=== PATIENT | male | born 1985 | race Caucasian/White ===

== ENCOUNTER 2016-10-02 22:30 | Emergency (ER) | payer MEDICAID ==
--- NOTE | 2016-10-02 22:58 | EDPHY ---
H & P Stated Complaint: rectal pain Time Seen by Provider: 10/02/16 22:38 HPI/ROS: HPI The patient presents with 4 days of rectal pain which is described as an ache which has been constant, though is worse with sitting, coughing, sneezing. It is not associated with any constipation, bleeding, hard stools. He has not had any fevers or chills. He has no prior history of similar. He describes the pain as moderate. He denies any rectal trauma. REVIEW OF SYSTEMS Constitutional: No fever, no chills. Eyes: No discharge. ENT: No sore throat. Cardiovascular: No chest pain, no palpitations. Respiratory: No cough, no shortness of breath. Gastrointestinal: No abdominal pain, no vomiting. Genitourinary: No hematuria. Musculoskeletal: No back pain. Skin: No rashes. Neurological: No headache. 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 PHYSICAL General Appearance: Alert, no distress Eyes: Pupils equal and round no pallor or injection ENT, Mouth: Mucous membranes moist Respiratory: There are no retractions, lungs are clear to auscultation Cardiovascular: Regular rate and rhythm Gastrointestinal: Abdomen is soft and non-tender, no masses, bowel sounds normal Rectal: At 12 o'clock just proximal to the anal sphincter there is an area of fluctuance and tenderness Neurological: A&O, moves all extremities Skin: Warm and dry, no rashes Musculoskeletal: Neck is supple non tender Extremities: symmetrical, full range of motion Psychiatric: Patient is oriented X 3, there is no agitation Source: Patient Exam Limitations: No limitations - Personal History Current Tetanus/Diphtheria Vaccine: Yes Current Tetanus Diphtheria and Acellular Pertussis (TDAP): Yes Tetanus Vaccine Date: < 10 years - Medical/Surgical History Hx Asthma: No Hx Chronic Respiratory Disease: No Hx Diabetes: No Hx Cardiac Disease: No Hx Renal Disease: No Hx Cirrhosis: No Hx Alcoholism: No Hx HIV/AIDS: No Hx Splenectomy or Spleen Trauma: No Other PMH: denies - Social History Smoking Status: Current every day smoker Constitutional: Initial Vital Signs Temperature (C) 36.5 C 10/02/16 22:35 Heart Rate 89 10/02/16 22:35 Respiratory Rate 16 10/02/16 22:35 Blood Pressure 147/94 H 10/02/16 22:35 O2 Sat (%) 97 10/02/16 22:35 O2 Delivery Mode Room Air Allergies/Adverse Reactions: No Known Allergies Allergy (Unverified 06/06/15 13:26) Home Medications: Medication Instructions Recorded Hydrocortisone Acetate [Anucort-Hc] 25 mg RC BID #14 supp.rect 10/03/16 Medical Decision Making ED Course/Re-evaluation: Initial encounter- Plan for basic labs and CT scan of his pelvis to evaluate for perirectal versus perianal abscess. Reassessment- Basic labs revealed a leukocytosis. The patient has received Toradol and Tylenol for pain with improvement in his symptoms. CT scan was performed that demonstrated no signs of infection. Now that the patient is more comfortable, anoscopy can be performed. I visualized a hemorrhoid just above the anal verge at approximately 12 o'clock which is likely the cause of his symptoms. I have discussed this with him. I plan to start treatment with steroid rectal suppository. His stools seem fairly soft, thus I am not sure that he would benefit from a bowel regimen, though I have encouraged him to maintain a high-fiber diet with plenty of fluids. I have given him follow-up information for General surgery in the case that he is not improved with suppositories. Differential Diagnosis: This is a 31-year-old healthy male who presents with 4 days of rectal pain. On exam, he has a palpable rectal mass. Differential diagnosis includes perirectal abscess, perianal abscess, internal hemorrhoid, anal fissure. - Data Points Laboratory Results: Laboratory Results 10/02/16 23:10 10/02/16 10/02/16 23:13 23:10 WBC 11.29 10^3/uL H 10^3/uL (3.80-9.50) RBC 5.21 10^6/uL 10^6/uL (4.40-6.38) Hgb 16.3 g/dL g/dL (13.7-17.5) POC Hgb 15.6 gm/dL gm/dL (14.5-17.3) Hct 45.6 % % (40.0-51.0) POC Hct 46 % % (42.8-50.6) MCV 87.5 fL fL (81.5-99.8) MCH 31.3 pg pg (27.9-34.1) MCHC 35.7 g/dL g/dL (32.4-36.7) RDW 12.7 % % (11.5-15.2) Plt Count 254 10^3/uL 10^3/uL (150-400) MPV 9.3 fL fL (8.7-11.7) Neut % (Auto) 54.6 % % (39.3-74.2) Lymph % (Auto) 35.3 % % (15.0-45.0) [place] % (Auto) 7.2 % % (4.5-13.0) Eos % (Auto) 2.2 % % (0.6-7.6) Baso % (Auto) 0.2 % L % (0.3-1.7) Nucleat RBC Rel Count 0.0 % % (0.0-0.2) Absolute Neuts (auto) 6.16 10^3/uL 10^3/uL (1.70-6.50) Absolute Lymphs (auto) 3.99 10^3/uL H 10^3/uL (1.00-3.00) Absolute Monos (auto) 0.81 10^3/uL H 10^3/uL (0.30-0.80) Absolute Eos (auto) 0.25 10^3/uL 10^3/uL (0.03-0.40) Absolute Basos (auto) 0.02 10^3/uL 10^3/uL (0.02-0.10) Absolute Nucleated RBC 0.00 10^3/uL 10^3/uL (0-0.01) Immature Gran % 0.5 % % (0.0-1.1) Immature Gran # 0.06 10^3/uL 10^3/uL (0.00-0.10) POC Sodium 144 mEq/L mEq/L (134-144) POC Potassium 3.7 mEq/L mEq/L (3.3-5.0) POC Chloride 106 mEq/L mEq/L (96-108) POC BUN 16 mg/dL mg/dL (7-23) POC Creatinine 1.2 mg/dL mg/dL (0.8-1.5) POC Glucose 109 mg/dL H mg/dL (70-100) Medications Given: Discontinued Medications Acetaminophen (Tylenol) 1,000 mg PO EDNOW ONE Stop: 10/02/16 23:32 Last Admin: 10/02/16 23:39 Dose: 1,000 mg Ketorolac Tromethamine (Toradol) 15 mg IVP EDNOW ONE Stop: 10/02/16 23:32 Last Admin: 10/02/16 23:40 Dose: 15 mg Point of Care Test Results: 10/02/16 23:13 POC Sodium 144 POC Potassium 3.7 POC Chloride 106 POC BUN 16 POC Creatinine 1.2 POC Glucose 109 H Departure - Departure Disposition: Home, Routine, Self-Care Clinical Impression: Hemorrhoid Qualifiers: Hemorrhoid type: unspecified Qualified Code(s): K64.9 - Unspecified hemorrhoids Condition: Good Instructions: Hemorrhoids (ED) Additional Instructions: Please make sure to drink plenty of fluids and maintain a high-fiber diet. You can use the suppositories as needed. If your symptoms continue for the next 1- 2 weeks, you should follow up with the general surgeon. Return to the emergency room if your worse in any way. Referrals: Sherif iWld MD [Medical Doctor] - As per Instructions Prescriptions: Hydrocortisone Acetate [Anucort-Hc] 25 mg RC BID #14 supp.rect
[2016-10-02] MEDS ORDERED: ACETAMINOPHEN 500 MG TAB PO ONE (23:31)
[2016-10-02] MEDS ORDERED: KETOROLAC 15 MG/1 ML SDV IVP ONE (23:31)
[2016-10-02 23:34] LABS: % IMMATURE GRANULYOCYTES 0.5 % (0.0-1.1); ABSOLUTE IMMATURE GRANULOCYTES 0.06 10^3/uL (0.00-0.10); ADD DIFF? NO; ADD MORPH? NO; ADD SCAN? NO; ATYPICAL LYMPHOCYTE FLAG 10 (0-99); FRAGMENT RBC FLAG 0 (0-99); HEMATOCRIT 45.6 % (40.0-51.0); HEMOGLOBIN 16.3 g/dL (13.7-17.5); LEFT SHIFT FLG 0 (0-99); LIPEMIA HEMOLYSIS FLAG 90 (0-99); MEAN CELL HEMOGLOBIN 31.3 pg (27.9-34.1); MEAN CELL HEMOGLOBIN CONCENTR. 35.7 g/dL (32.4-36.7); MEAN CELL VOLUME 87.5 fL (81.5-99.8); MEAN PLATELET VOLUME 9.3 fL (8.7-11.7); PLATELET CLUMPS FLAG 20 (0-99); PLATELET COUNT 254 10^3/uL (150-400); RED BLOOD CELL COUNT 5.21 10^6/uL (4.40-6.38); RED CELL DISTRIBUTION WIDTH 12.7 % (11.5-15.2)
[2016-10-03] MEDS ORDERED: IOPAMIDOL (ISOVUE-300) 100 ML BTL IV ONE (00:02)
[2016-10-03 00:38] VITALS: BP 125/64; PULSE 79; O2SAT 94
[2016-10-03 01:46] VITALS: RESP 15; TEMP 97.9
== END 2016-10-03 01:45 | disposition home or self-care (01) ==
DX: K64.9 Unspecified hemorrhoids (principal); F17.200 Nicotine dependence, unspecified, uncomplicated
CPT/HCPCS: 82947-QW; 96374; J1885; Q9967